=== PATIENT | male | born 1980 | race African-American/Black ===

== ENCOUNTER 2016-06-22 13:32 | Emergency (ER) | payer MEDICAID ==
[~2016-06-22] VITALS: Ht 162.6 cm; Wt 118.1 kg
[~2016-06-22 13:32] MED LIST: BACL20TA PO; HYDR-3989 PO; NO ROUTINE MEDS
--- OUTSIDE RECORDS SUMMARY | 2016-06-22 13:36 | XMS REPORT | Continuity of Care Document ---
Author Author [facility] Organization [facility] Address Unknown Phone Unavailable Allergies Active Description Code Type Severity Reaction Onset Reported/Identified Relationship to Patient Clinical Status Yes No Known Allergies Drug Allergy 03/14/2011 Yes No Known Drug Allergies Drug Allergy 03/14/2011 Yes No Known Food Allergies Food Allergy 03/14/2011 Medications Problems Date Dx Coded Attending Type Code Diagnosis Diagnosed By 11/15/2011 Nagi Cason MD Final 305.1 TOBACCO USE DISORDER 11/15/2011 Nagi Cason MD Final 380.4 IMPACTED CERUMEN 11/15/2011 Nagi Cason MD Admitting 388.8 EAR DISORDER NEC Procedures Results Encounters ACCT No. Visit Date/Time Discharge Status Pt. Type Provider Facility Loc./Unit Complaint [id number] 10/13/2011 15:00:00 2011 16:42:00 DIS Emergency Obi NEVAREZ, Dmitriy Carballo [facility] JASSON
--- OUTSIDE RECORDS SUMMARY | 2016-06-22 13:36 | XMS REPORT | Continuity of Care Document ---
Author Author [facility] Organization [facility] Address Unknown Phone Unavailable Support Name Relationship Address Phone PAULO MUSA MD Caregiver [address] [place] [address] [place] [address] Unavailable KAIT LOU Next Of Kin [address] [place] [address] Insurance Providers Guarantor Kyaw Lou Address [address] [place] [address] Email [email or web address] Payer Medicaid Out Of State Policy Number [id number] Subscriber's Name Kyaw Lou Relationship 19 Self Chief Complaint and Reason for Visit Chief Complaint Lower Extremity Pain Reason for Visit Low back pain with sciatica Problems Active Problems Medical Problem Onset Date Status Acute bronchitis Unknown Acute Chalazion of right upper eyelid Unknown Acute Contusion of testicle Unknown Acute Dizziness Unknown Acute Low back pain with sciatica Unknown Acute Muscle strain Unknown Acute Nausea and vomiting Unknown Acute Pleuritic chest pain Unknown Acute Past Problems Medical Problem Onset Date Atypical chest pain Unknown Rectal fissure Unknown Medications Current Home Medications Medication Dose Units Route Directions Days Qty Instructions Start Date Acetaminophen/Hydrocodone Bitart ([place] 5-325 Tablet) 5-325 Tablet 1-2 Tab Oral Every 6 Hours as needed for Pain 20 Tablet 04/07/16 Baclofen 20 Mg Tablet 1 Tab Oral Three Times A Day 20 Tablet No Routine Meds 03/27/16 Past Home Medications Medication Directions Ordered Status Amoxicillin 500 Mg Capsule, 1 Cap Oral Three Times A Day 10/11/14 Discontinued Sulfacetamide Sodium (Bleph-10) 5 Ml Drops, 2 Drop Right Eye Only Every 6 Hours 11/22/14 Discontinued Social History Social History Problem Response Recorded Date/Time Onset Date Status Hx Substance Use Y MARIJUANA 03/27/2016 4:56pm Not Applicable Not Applicable Hx Alcohol Use Y RARELY 03/27/2016 4:56pm Not Applicable Not Applicable Tobacco Usage smoke 10/14/2014 10:40am Not Applicable Not Applicable Hospital Discharge Instructions No hospital discharge instructions. Plan of Care Discharge Date 04/07/16 2:18pm Disposition 01 DISCHARGED HOME, SELF-CARE Condition at Discharge Stable Instructions/Education Provided Low Back Strain (ED) Prescriptions See Medication Section Additional Instructions/Education Recommend ibuprofen 800 mg every 8 hours, also prescriptions for baclofen and [place] for severe pain. Follow-up with physician you establish with Care Plan and Goals Physician Care Plan Problem: Low back pain and sciatica with ankle pain Goal: Follow up with primary care provider Instructions: Take medications and follow care plan as discussed/written Functional Status No functional status results. Allergies, Adverse Reactions, Alerts No known allergies. Immunizations Query Response on File Recorded Date/Time Hx Influenza Vaccination No 11/22/14 2:21pm Hx Pneumococcal Vaccination No 11/22/14 2:21pm Hx Influenza Vaccination No 11/22/14 2:21pm Influenza Vaccine Hx NO 03/27/16 4:56pm Tetanus Diptheria Vaccine History UNKNOWN 03/27/16 4:56pm Tdap Vaccine Hx UNKNOWN - SKIN INTACT 04/07/16 11:35am Vital Signs Acute Vital Signs Vital Response Date/Time Temperature (Fahrenheit) 98.4 deg F (96.8 - 99.1) 04/07/2016 2:18pm Temperature (Calculated Celsius) 36.88625 degrees C (36.0 - 37.3) 04/07/2016 2:18pm Pulse Rate (adult) 69 bpm (60 - 100) 04/07/2016 2:18pm Respiratory Rate 20 breaths/min (10 - 20) 04/07/2016 2:18pm O2 Sat by Pulse Oximetry 98 % (90 - 100) 04/07/2016 2:18pm Blood Pressure 132/71 mm Hg 04/07/2016 2:18pm Height (Feet) 5 feet 04/07/2016 11:35am Height (Inches) 3.00 inches 04/07/2016 11:35am Weight (Kilograms) 114.200 kg 04/07/2016 11:35am Body Mass Index (BMI) 44.0 04/07/2016 11:35am Results No known relevant diagnostic tests, laboratory data and/or discharge summary. Procedures Procedure Status Date Provider(s) Emergency dept visit Completed 03/27/16 Encounters Encounter Location Arrival/Admit Date Discharge/Depart Date Attending Provider Departed Emergency Room [facility] 04/07/16 11:28am 04/07/16 2: 18pm PAULO MUSA MD Departed Emergency Room [facility] 03/27/16 4:10pm 03/27/16 5: 05pm RITCHIE RIVERA MD Recent Diagnosis
[2016-06-22 13:37] VITALS: TEMP 98.3; Ht 162.6 cm; Wt 118.1 kg
--- OUTSIDE RECORDS SUMMARY | 2016-06-22 13:58 | XMS REPORT | Continuity of Care Document ---
Author Author [facility] Organization [facility] Address Unknown Phone Unavailable Allergies Active [...] Status Pt. Type Provider Facility Loc./Unit Complaint [id number] 10/13/2011 15:00:00 2011 16:42:00 DIS Emergency Obi NEVAREZ, Dmitriy Carballo [facility] JASSON
--- NOTE | 2016-06-22 15:14 | ERPDOC ---
Departure Disposition Decision Date: Jun 22, 2016 Disposition Decision Time: 16:35 Disposition: 01 DISCHARGED HOME, SELF-CARE Impression Impression Impression: Primary Impression: Lower back pain Chronicity: acute Back pain laterality: right Sciatica presence: with sciatica Sciatica laterality: sciatica of right side Qualified Codes: M54.41 - Lumbago with sciatica, right side Severity: Moderate Condition: Improved Seen By: Mid-level only Patient Instructions: Acute Low Back Pain (ED) Problems/Meds/Labs Reviewed?: Yes Medications reviewed and manag: Yes Additional Instructions: Your labs are normal today. You may take diclofenac 75 mg twice daily with food for pain. You may take cyclobenzaprine 10 mg every 8 hours as needed for muscle pain/ spasm. This medication may cause drowsiness so avoid driving, operating heavy machinery or drinking alcohol while taking. Follow treatment plan (see dismissal packet). Follow with your PCP next week if symptoms are not improving, sooner worsening symptoms. Departure Forms: Return to Work/School Permit Return to Work/School Date: Jun 23, 2016 Follow up care ordered?: Yes Mental Status: Alert, Oriented Scripts Cyclobenzaprine HCl (Cyclobenzaprine HCl) 10 Mg Tablet 1 TAB PO TID for 7 Days, #21 TAB Prov: MANDIE JAEGER PSYCHOLOGY DEPARTMENT CHAIR 06/22/16 Diclofenac Sodium (Diclofenac Sodium) 75 Mg Tablet.dr 1 TAB PO BID for 7 Days, #14 TAB Prov: MANDIE JAEGER PSYCHOLOGY DEPARTMENT CHAIR 06/22/16 HPI - Back Pain General Chief Complaint: Low Back Pain or Injury Stated Complaint: BACK PAIN Time Seen by Provider: 15:10 Source: patient HPI - Back Pain Initial Comments 36 YO M presents to ED with report of right sided lower back pain that radiates to right thigh. Says he woke up with back paint his morning. Has not taken anything for pain. Reports pain was so bad when walking to work today he " almost passed out". A friend picked him up and took him to work. Patient denies any numbness/tingling/loss of sensation/function/loss of bowel/bladder, strain/ trauma, urinary retention or ataxia. Describes pain as sharp. Pain/Severity Scale: Now: 7/10 1 - Reports pain Associated Sypmtoms: lower back pain, DENIES: fever, numbness in legs/feet, sensory/motor loss, tingling in legs/feet, weakness Allergies: Coded Allergies: No Known Allergies (Unverified , 06/22/16) Past History Past Medical History Metabolic: diabetes, hypertension ENMT: sleep apnea Cardiac: DENIES: angina Respiratory: asthma GI: DENIES: ulcers Male: DENIES: renal insufficiency Neurological: DENIES: seizures Musculoskeletal: back pain, DENIES: rheumatoid arthritis Psychological: depression Surgical History Denies Surgeries Family History Family PMH: FOUND: other (noncontributory) Vaccines Hx Influenza Vaccination: No Hx Pneumococcal Vaccination: No Social History Substance Use Type: marijuana Alcohol Intake: none Current Occupational Status: employed Review of Systems Constitutional Constitutional: DENIES: chills, dizziness, fever, weakness Eyes General: DENIES: erythema, exudate Lids/Accessories: DENIES: erythema, swelling Vision: DENIES: blurring ENMT Ears: DENIES: pain Hearing: DENIES: hearing loss Sinuses: DENIES: congestion, rhinorrhea Mouth/Throat: DENIES: sore throat Cardiovascular Cardiac: DENIES: chest pain, murmur Rhythm/Rate: DENIES: palpitations Pulmonary Respiratory: DENIES: cough, dyspnea GI Upper Abdomen: DENIES: nausea, pain, vomiting Lower Abdomen: DENIES: blood in stool, diarrhea, pain General: DENIES: dysuria, pain Musculoskeletal General: pain, see HPI, DENIES: tenderness Integumentary Skin: DENIES: color change, itching, rash Neurological General: DENIES: ataxia, change in strength, numbness, paralysis/paresis, weakness Psychiatric Psychiatric: DENIES: anxiety, depression, nervousness Physical Exam General General Nourishment: well nourished, well developed, no acute distress, adult General Body Habitus: disheveled Vitals and Pain Weight: Kilograms: 118.100 Height (feet): 5 Height (inches): 4.00 Triage Pain Scale: Eyes (brief) Eyes Brief: found: EOMI, PERRL ENMT (brief) ENMT Brief: FOUND: mucosa moist, NOT FOUND: nasal exudate, nasal swelling, pharnyx erythema Neck (brief) Neck: FOUND: trachea midline, NOT FOUND: adenopathy, spasm, tenderness, thyromegaly Respiratory (brief) Respiratory: FOUND: clear all thibodeaux, equal bilaterally, symmetrical Cardiovascular (brief) Cardiac: FOUND: regular rate, regular rhythm Musculoskeletal Back: NOT FOUND: spasm, spine point tenderness, tenderness (no reproducible TTP ) Integumentary (brief) Integumentary Brief: FOUND: dry, pink, warm Neurologic (brief) Neurological Brief: FOUND: CN w/o gross def to obs, motor-no gross deficits, sensory-no gross deficits Psychiatric (brief) Psychiatric Brief: FOUND: alert, normal affect, oriented Progress Results/Orders Orders Procedure Category Date Status Time Ua, Dip Wreflex LAB 06/22/16 Complete Microsc & Press Operator Printing 15:18 Orthostatic Vitals CLARIBEL 06/22/16 Complete Signs 15:21 Bmp - Basic Metabolic LAB 06/22/16 Complete Panel Cbc W/Auto LAB 06/22/16 Complete Diff-Reflex Manual Ketorolac (Toradol) PHA 06/22/16 Complete 16:00 Lab Results Laboratory Tests Test 06/22/16 15:26 06/22/16 15:36 Urine Collection Type Voided-not cc-midstr Urine Color Yellow Urine Turbidity Sl cloudy Urine pH 6.0 Urine Specific Conde 1.020 Urine Protein Negative Urine Glucose (UA) Negative Urine Ketones Negative Urine Blood Negative Urine Nitrite Negative Urine Bilirubin Negative Urine Urobilinogen 0.2EU/DL Urine Leukocyte Esterase Negative Urinalysis Comment Microscopic not ind. White Blood Count 9.4T/MM3 Red Blood Count 4.39M/MM3 Hemoglobin 14.4GM/DL Hematocrit 44.0% Mean Corpuscular Volume 100.2UM3 Mean Corpuscular Hemoglobin 32.8UUG Mean Corpuscular Hemoglobin Concent 32.7GM/DL RDW Standard Deviation 47.7FL Platelet Count 284T/MM3 Mean Platelet Volume 9.6UM3 Immature Granulocyte % (Auto) 0.1% Neutrophils (%) (Auto) 54.3% Lymphocytes (%) (Auto) 35.3% Monocytes (%) (Auto) 6.0% Eosinophils (%) (Auto) 3.9% Basophils (%) (Auto) 0.4% Absolute Immature Granulocyte (auto 0.01T/MM3 Absolute Neutrophils (auto) 5.1T/MM3 Absolute Lymphocytes (auto) 3.3T/MM3 Absolute Monocytes (auto) 0.6T/MM3 Absolute Eosinophils (auto) 0.4T/MM3 Absolute Basophils (auto) 0.0T/MM3 Turbidity < 20 Sodium Level 144MEQ/L Potassium Level 4.1MEQ/L Chloride Level 106MEQ/L Carbon Dioxide Level 28MEQ/L Anion Gap 10MEQ/L Blood Urea Nitrogen 15.0MG/DL Creatinine 1.1MG/DL Glomerular Filtration Rate Calc 76 BUN/Creatinine Ratio 14RATIO Glucose Level 98MG/DL Calculated Osmolality 278MOSM/KG Calcium Level 9.5MG/DL Icterus Index < 2 Chemistry Specimen Hemolysis < 15 Medications Current ED Medications Ketorolac Tromethamine (Toradol) 60 mg O ONCE IM Last administered on t 16:08; Start 06/22/16 at 16:00; Stop 06/22/16 at 16:01; Status DC Progress Progress Patient reports improvement of pain after toradol. Labs unremarkable. Patient is sent home improved and verbalized understanding of treatment plan, follow up with PCP and return precautions. Patient reports hx. of diabetes and HTN but is not taking any medication. I discussed follow up for repeat blood pressure with PCP due to elevation in ED. MANDIE JAEGER PSYCHOLOGY DEPARTMENT CHAIR Jun 22, 2016 15:14
[2016-06-22 15:31] LABS: BLOOD, URINE NEGATIVE (NEGATIVE); COLOR,URINE YELLOW (YELLOW); LEUKOCYTE ESTERASE ,URINE NEGATIVE (NEGATIVE); NITRITE,URINE NEGATIVE (NEGATIVE); UROBILINOGEN,URINE 0.2 EU/DL (NORMAL)
[2016-06-22 15:41] LABS: BASOPHILS % (AUTO) 0.4 % (0-2); EOSINOPHILS # (AUTO) 0.4 T/MM3 (0-0.5); EOSINOPHILS % (AUTO) 3.9 % (0-4); HGB - HEMOGLOBIN 14.4 GM/DL (13.5-17.5); IMMATURE GRANULOCYTE # (AUTO) 0.01 T/MM3 (0.00-0.03); IMMATURE GRANULOCYTE % (AUTO) 0.1 % (0.0-0.5); LYMPHOCYTES # (AUTO) 3.3 T/MM3 (1-4.8); LYMPHOCYTES % (AUTO) 35.3 % (23-45); MEAN CORPUSCULAR HGB 32.8 UUG (26-34); MEAN CORPUSCULAR HGB CONC(MCHC 32.7 GM/DL (31-37); MEAN CORPUSCULAR VOLUME 100.2 UM3 (80-100); MEAN PLATELET VOLUME 9.6 UM3 (9.4-12.4); MONOCYTES # (AUTO) 0.6 T/MM3 (0-0.8); NEUTROPHILS #(AUTO)-ABSOLUTE 5.1 T/MM3 (1.8-7.7); NEUTROPHILS % (AUTO) 54.3 % (33-66); RED BLOOD COUNT 4.39 M/MM3 (4.50-5.90); WBC - WHITE BLOOD COUNT 9.4 T/MM3 (4.5-11.0)
[2016-06-22 15:50] LABS: ANION GAP 10 MEQ/L (5-15); BUN/CREATININE RATIO 14 RATIO (6-26); CALCIUM 9.5 MG/DL (8.4-10.2); CHLORIDE 106 MEQ/L (98-107); CO2 - CARBON DIOXIDE 28 MEQ/L (22-30); CREATININE 1.1 MG/DL (0.8-1.5); GLOMERULAR FILTRATION RATE 76; GLUCOSE 98 MG/DL (75-110); POTASSIUM 4.1 MEQ/L (3.6-5); SODIUM 144 MEQ/L (134-144)
[2016-06-22] MEDS ORDERED: KETOROLAC 60mg/2ml INJECTION IM ONE (16:00)
--- NOTE | 2016-06-22 16:11 | NUR ---
TORADOL TORADOL GIVEN IM FOR LOW BACK PAIN.
[2016-06-22] MEDS ORDERED: CYCL-375 PO (16:39)
[2016-06-22] MEDS ORDERED: DICL75TA5 PO (16:39)
--- NOTE | 2016-06-22 17:00 | NUR ---
DISMISSAL NOTE DISMISSAL INSTRUCTIONS GIVEN TO PT. AND NO FURTHER QUESTIONS. RX FOR DICLOFENAC AND CYCLOBENZAPRINE GIVEN TO PT. WORK NOTE GIVEN. PT. LEFT ED AMBULATORY BY SELF.
[2016-06-22 17:04] VITALS: BP 179/99; PULSE 63; RESP 18; O2SAT 96
== END 2016-06-22 17:00 | disposition home or self-care (01) ==
LOC: ED 13:32
DX: M54.41 Lumbago with sciatica, right side (principal)
CPT/HCPCS: 36415; 80048; 81003; 85025; 96372; 99283; J1885